=== PATIENT | female | born 1985 | race American Indian/Alaskan Native ===

== ENCOUNTER 2016-12-06 08:28 | Inpatient (IN) | payer MEDICAID ==
[2016-12-06] MEDS ORDERED: POLYCILLIN/NS 2 GM/100 ML 0 GM/0 ML BAG IV ONE (09:08)
[2016-12-06] MEDS ORDERED: PITOCin/NS 20 UNIT/1000ML DRIP 20,000 MILLIUNITS/1,000 ML BAG IV ONE (09:26)
[2016-12-06 09:43] LABS: Basophils % (Auto) 0.2 % (0.0-1.8); Eosinophils % (Auto) 0.2 % (0.0-4.3); Hematocrit 39.5 % (30.3-42.9); Hemoglobin 13.5 gm/dl (10.1-14.3); Mean Corpuscular HGB Conc 34 % (30-34); Mean Corpuscular Hemoglobin 30 pg (28-32); Mean Corpuscular Volume 89 fl (79-97); Platelet Count 153 K/mm3 (140-440); Red Blood Count 4.45 M/mm3 (3.65-5.03); Red Cell Distribution Width 13.4 % (13.2-15.2); White Blood Count 12.4 K/mm3 (4.5-11.0)
[2016-12-06] MEDS ORDERED: LACTATED RINGERS 1,000 ML IV SCH (10:00)
--- NOTE | 2016-12-06 10:10 | History and Physical Report ---
History of Present Illness Date of examination: 12/06/16 Date of admission: 12/06/16 08:49 Chief complaint: My water broke History of present illness: Patient is a 31 year old who presents to L&D at 39.4 with complaint of leaking fluid and contractions since 5am. She has been receiving care since the first trimester. Her course had been uncomplicated except for a late term diagnosis of HSV 2. She has been on Valtrex since 36 weeks. Past History Past Medical History: no pertinent history Past Surgical History: no surgical history [employer] History: herpes Family/Genetic History: none Social history: single - Obstetrical History Expected Date of Delivery: 12/10/16 Actual Gestation: 39 Week(s) 3 Day(s) : 3 Para: 1 Number of Living Children: 1 Medications and Allergies Allergies Allergy/AdvReac Type Severity Reaction Status Date / Time No Known Allergies Allergy Verified 12/06/16 10:04 Active Meds: Active Medications Fentanyl (Sublimaze) 100 mcg IV ONCE ONE Stop: 12/06/16 11:01 Lactated Ringer's (Lactated Ringers) 1,000 mls @ 125 mls/hr IV DIRECT MAXIMUS Influenza Virus Vaccine Quadrival (Fluarix Quad [id number](36 Mos+)) 0.5 ml IM .ONCE ONE Stop: 12/07/16 12:01 Review of Systems All systems: negative Genitourinary: leakage of fluid, contractions - Vital Signs Vital signs: Vital Signs Pulse BP 94 H 127/68 12/06/16 08:50 12/06/16 08:50 Temp Pulse Resp BP Pulse Ox 98.1 F 94 H 16 130/73 12/06/16 09:40 12/06/16 09:58 12/06/16 09:40 12/06/16 09:58 - Physical Exam Breasts: Cardiovascular: Regular rate, Normal S1, Normal S2 Lungs: Positive: Clear to auscultation, Normal air movement Abdomen: Positive: normal appearance, soft, normal bowel sounds. Negative: distention, tenderness Genitourinary (Female): Positive: normal external genitalia, normal perenium Vulva: both: normal Vagina: Positive: normal moisture. Negative: discharge Cervix: Negative: lesion, discharge Uterus: Positive: normal size, normal contour Adnexa: both: normal Anus/Rectum: Positive: normal perianal skin, heme negative. Negative: rectal mass, hemorrhoids Extremities: Deep Tendon Reflex Grade: Normal +2 - Obstetrical FHR: auscultation normal Cervical Dilatation: 3 Cervical Effacement Percentage: 90 station: -2 Uterine Contraction Frequency (min): 4 Uterine Contraction Pattern: Regular Uterine Contraction Intensity: Strong/Firm Results Result Diagrams: 12/06/16 08:45 Abnormal lab results 12/06/16 Range/Units 08:45 WBC 12.4 H (4.5-11.0) K/mm3 Lymph % (Auto) 13.3 L (13.4-35.0) % [place] # 0.9 H (0.0-0.8) K/mm3 Seg Neutrophils % 79.2 H (40.0-70.0) % Seg Neutrophils # 9.8 H (1.8-7.7) K/mm3 All other labs normal. Assessment and Plan IUP at 39.3 weeks in active labor. Admit for labor. GBS negative. Anticipate ,.
--- NOTE | 2016-12-06 10:14 | Procedure Note ---
OB Delivery Note - Delivery Date of Delivery: 12/06/16 Surgeon: DYAN BANDA Estimated blood loss: other (150) - Vaginal Delivery presentation: vertex Delivery position: OA Intrapartum events: none Delivery induction: none Delivery monitor: external FHT, external uterine Route of delivery: Delivery placenta: spontaneous Delivery cord: 3 umbilical vessels Episiotomy: none Delivery laceration: none Anesthesia: none Delivery comments: Viable female delivered over intact perineum with 3vc. placed on maternal abdomen. Cord clamped and cut when done pulsing. Placenta delivered spontaneously and intact with 3vc. Weight 6 pounds 11 ounces. Apgars 8,9. Patient tolerated procedure well. - A at 1 minute: 8 at 5 minutes: 9 Gender: Female
[2016-12-06] MEDS ORDERED: MOTRIN PO PRN (10:30)
[2016-12-06] MEDS ORDERED: SUBLIMAZE IV ONE (11:00)
[2016-12-06] MEDS ORDERED: PITOCin/NS 20 UNIT/1000ML DRIP 20 UNITS/1,000 ML BAG IV SCH (11:00)
[2016-12-06] MEDS ORDERED: PHENERGAN PR PRN (11:48)
[2016-12-06] MEDS ORDERED: NORCO 5/325 PO PRN (11:48)
[2016-12-06] MEDS ORDERED: DULCOLAX PR PRN (11:48)
[2016-12-06] MEDS ORDERED: LANSINOH TP PRN (11:48)
[2016-12-06] MEDS ORDERED: BENADRYL PO PRN (11:48)
[2016-12-06] MEDS ORDERED: ZOFRAN IV PRN (11:48)
[2016-12-06] MEDS ORDERED: PHENERGAN PO PRN (11:48)
[2016-12-06] MEDS ORDERED: MILK OF MAGNESIA PO PRN (11:48)
[2016-12-06] MEDS ORDERED: TYLENOL PO PRN (11:48)
[2016-12-06] MEDS ORDERED: TUCKS PAD TP PRN (11:48)
[2016-12-06] MEDS ORDERED: SODIUM CHLORIDE FLUSH SYRINGE 10 ML IV NR (11:48)
[2016-12-06] MEDS: MOTRIN PO SCH ×3 (13:01→23:05)
[2016-12-06 22:56] LABS: Hematocrit 35.8 % (30.3-42.9)
[2016-12-06] MEDS: COLACE PO SCH (23:05)
[2016-12-07] MEDS ORDERED: BOOSTRIX IM ONE (06:00)
[2016-12-07] MEDS: MOTRIN PO SCH ×5 (06:09→23:48)
[2016-12-07] MEDS: PRENATAL VITAMIN PO SCH (10:28)
[2016-12-07] MEDS: COLACE PO SCH ×2 (10:28→22:13)
[2016-12-07] MEDS ORDERED: Fluarix Quad 2017-2018(36 MOS+) IM ONE (12:00)
--- NOTE | 2016-12-07 18:15 | Progress Note ---
Assessment and Plan ppd 1 s/p .Doing well. Baby has to stay for bilirubin evaluation this evening. Plan for discharge on tomorrow. Subjective - Subjective Date of service: 12/07/16 Interval history: Patient is a 31 year old who presents to L&D at 39.4 with complaint of leaking fluid and contractions since 5am. She has been receiving care since the first trimester. Her course had been uncomplicated except for a late term diagnosis of HSV 2. She has been on Valtrex since 36 weeks. Patient reports: appetite normal, voiding normally, pain well controlled [place]: doing well Objective - Vital Signs Latest vital signs: Vital Signs Temp Pulse Resp BP BP Pulse Ox 12/07/16 16:48 98.2 F 72 18 102/56 94 12/07/16 08:28 98.1 F 85 18 109/72 96 12/07/16 04:30 98.6 F 77 16 111/78 12/07/16 00:37 98.6 F 71 18 121/65 12/06/16 20:30 98.6 F 76 18 127/79 Intake and Output 12/07/16 12/07/16 12/07/16 06:59 14:59 22:59 Intake Total 1000 480 240 Balance 1000 480 240 Intake: Oral 400 480 240 Intake, Free Water 600 Other: Total, Intake Amount 200 360 240 # Voids Void 1 1 - Exam Breasts: Present: deferred Cardiovascular: Present: Regular rate, Normal S1, Normal S2 Lungs: Present: Clear to auscultation, Normal air movement Abdomen: Present: normal appearance, soft, normal bowel sounds Vulva: both: normal Uterus: Present: normal, firm Extremities: Present: normal Deep Tendon Reflex Grade: Normal +2
[2016-12-08] MEDS: MOTRIN PO SCH ×2 (05:47→12:13)
[2016-12-08 09:03] VITALS: BP 108/60
[2016-12-08] MEDS: PRENATAL VITAMIN PO SCH (10:05)
[2016-12-08] MEDS: COLACE PO SCH (10:05)
--- NOTE | 2016-12-08 12:04 | Discharge Summary ---
Providers - Providers Date of Admission: 12/06/16 08:49 Date of discharge: 12/08/16 Attending physician: DYAN BANDA Primary care physician: DYAN BANDA Hospitalization Reason for admission: active labor, rupture of membranes Delivery: complications: none Discharge diagnosis: IUP at term delivered baby: female Hospital course: unremarkable Condition at discharge: Good Disposition: DC-01 TO HOME OR SELFCARE Plan - Discharge Medications Prescriptions: Ibuprofen [Motrin] 800 mg PO Q8HR PRN #30 tablet PRN Reason: Pain - Provider Discharge Summary Additional instructions: [] Smoking cessation referral if applicable(refer to patient education folder for contact #) [] Refer to [facility]'s [facility] Booklet Call your doctor immediately for: * Fever > 100.5 * Heavy vaginal bleeding ( >1 pad per hour) * Severe persistent headache * Shortness of breath * Reddened, hot, painful area to leg or breast * Drainage or odor from incision. * Keep incision clean and dry at all times and follow doctor's instructions regarding bathing/showering - Follow up plan Follow up: DYAN BANDA MD [Primary Care Provider] - 7 Days Forms: [facility] Discharge Summary, Discharge Signature Page
== END 2016-12-08 13:46 | disposition home or self-care (01) | DRG 774 ==
LOC: TRG 08:28 → LD 08:49 → OB 11:42
PROVIDERS: ADMIT Obstetrics & Gynecology; ATTEND Obstetrics & Gynecology
PROC: 10E0XZZ Delivery of Products of Conception, External Approach (ICD-10-PCS; principal; 2016-12-06)
PROC: 3E0234Z Introduction of Serum, Toxoid and Vaccine into Muscle, Percutaneous Approach (ICD-10-PCS; 2016-12-07)
DX: O98.52 Other viral diseases complicating childbirth (principal); Z3A.39 39 weeks gestation of pregnancy; Z37.0 Single live birth; Z23 Encounter for immunization; B00.9 Herpesviral infection, unspecified; Z79.899 Other long term (current) drug therapy
CPT/HCPCS: 36415; 85014; 85018; 85025; 86592; 86850; 86900; 86901; 90686; 99211; G0463; J0290; J2590; J3010; J7120